=== PATIENT | female | born 1985 | race Caucasian/White ===

== ENCOUNTER → 2017-03-18 | Outpatient (CLI) | payer MEDICARE ==
[~2017-03-18] MED LIST: APTIOM400 MG PO; ATIVAN1 MG; BACTRIM DS TAB1 EAC1 PO; BACTRIM DS TAB1 EACH PO; CLIMARA0.0375 MG TRANSDERM; FOLIC ACID 1 MG1 MG GT; HYDROCODONE-AP1 EAC6 PO; LAMICTAL XR200 MG PO; LEXAPRO20 MG PO; LEXAPRO5 MG PO; LOMOTIL TABLET1 EACH PO; MULTIVITAMINS; NORCO 5-325 TA1 EAC1 PO; NORCO 5-325 TA1 EACH PO; PAXIL10 MG PO; PERCOCET 5-3251 EACH PO; PHENERGAN 25 MG25 M1 PO; PROGESTERONE100 MG PO; SILVADENE20 GM TP; TAMSULOSIN HCL0.4 M1 PER TUBE; TORADOL 10 MG T10 MG PO; TRAMADOL 50 MG50 MG PO; TRINESSA1 EACH PO; VALIUM5 MG; VIMPAT200 MG PO
[2017-03-18 11:27] LABS: HEMATOCRIT 41.2 % (37.0-47.0); HEMOGLOBIN 13.8 gm/dL (12.0-15.0); MCH 30.7 pg (26.0-34.0); MCHC 33.6 g/dL (28.0-37.0); MCV 91.4 fL (80.0-100.0); MPV 8.7 fl. (7.2-11.1); RBC 4.5 mil/uL (4.20-5.00); WBC 7.4 thou/uL (4.0-11.0)
[2017-03-18 11:39] LABS: ALBUMIN 3.9 g/dL (3.4-5.0); CALCIUM 9.1 mg/dL (8.5-10.1); CREATININE 0.7 mg/dL (0.6-1.3); POTASSIUM 3.8 mmol/L (3.5-5.1); TOTAL BILIRUBIN 0.2 mg/dL (<0.1-1.0); TOTAL PROTEIN 7.5 g/dL (6.4-8.2)
[2017-03-18 19:10] LABS: CORTISOL AM 11.8 ug/dL (6.2-19.4); PROLACTIN 5.9 ng/mL (4.8-23.3)
== END ==
LOC: M.LAB 10:53
PROVIDERS: Obstetrics & Gynecology
DX: G47.9 Sleep disorder, unspecified (principal); E55.9 Vitamin D deficiency, unspecified

== ENCOUNTER 2017-04-17 13:34 | Emergency (ER) | payer MEDICARE ==
[~2017-04-17] VITALS: Ht 160 cm; Wt 77.1 kg
[~2017-04-17 13:34] MED LIST changes: -LEXAPRO20 MG PO; -LOMOTIL TABLET1 EACH PO; -PHENERGAN 25 MG25 M1 PO; -PROGESTERONE100 MG PO; -TORADOL 10 MG T10 MG PO
[2017-04-17] MEDS ORDERED: LEXAPRO20 MG PO (13:54)
[2017-04-17 14:15] LABS: URINE BILIRUBIN NEGATIVE (Negative); URINE BLOOD NEGATIVE (Negative); URINE CLARITY CLEAR; URINE COLOR YELLOW; URINE GLUCOSE-RANDOM NEGATIVE (Negative); URINE KETONES NEGATIVE (Negative); URINE LEUKOCYTES-REFLEX NEGATIVE (Negative); URINE NITRITE-REFLEX NEGATIVE (Negative); URINE PROTEIN NEGATIVE (Negative); URINE UROBILINOGEN 0.2 E.U./dl (0.2-1.0)
[2017-04-17 14:21] LABS: MCH 31.2 pg (26.0-34.0); NUCLEATED RBCS 0 /100WBC
[2017-04-17 14:23] LABS: MCV 91.7 fL (80.0-100.0); MPV 8.3 fl. (7.2-11.1); PLATELET COUNT* 211 thou/uL (150-400); RBC 4.81 mil/uL (4.20-5.00); RDW-CV 13.5 % (10.5-14.5); WBC 10.6 thou/uL (4.0-11.0)
[2017-04-17 14:24] LABS: AMP/METHAMP Negative (Negative); BARBITURATES Negative (Negative); BENZODIAZEPINES Negative (Negative); COCAINE Negative (Negative); METHADONE Negative (Negative); OPIATES POSITIVE (Negative); PCP Negative (Negative); THC Negative (Negative)
[2017-04-17 14:28] LABS: ANION GAP 7 mmol/L (7-16); BUN 8 mg/dL (7-18); CALCIUM 9.2 mg/dL (8.5-10.1); CHLORIDE 101 mmol/L (98-107); CO2 29 mmol/L (21-32); CREATININE 0.7 mg/dL (0.6-1.3); GLUCOSE 100 mg/dL (70-99); POTASSIUM 3.9 mmol/L (3.5-5.1); SODIUM 137 mmol/L (136-145)
[2017-04-17 14:35] LABS: ALBUMIN 4.2 g/dL (3.4-5.0); ALKALINE PHOSPHATASE 98 U/L (46-116); MAGNESIUM 1.9 mg/dL (1.8-2.4); SGOT 27 U/L (15-37); SGPT 47 U/L (30-65); TOTAL BILIRUBIN 0.2 mg/dL (<0.1-1.0); TROPONIN-I LEVEL <0.06 ng/mL (<0.06)
[2017-04-17 15:04] LABS: ABSOLUTE EOSINOPHILS 0.1 thou/uL (0.0-0.7); ABSOLUTE LYMPHOCYTES 0.3 thou/uL (0.8-5.3); ABSOLUTE MONOCYTES 0.1 thou/uL (0.0-1.2); ABSOLUTE NEUTROPHILS 10.1 thou/uL (1.6-8.1); PLATELET ESTIMATE ADEQUATE
[2017-04-17] MEDS ORDERED: BACTRIM DS TAB1 EACH PO (15:25)
[2017-04-17] MEDS ORDERED: TORADOL 10 MG T10 MG PO (15:26)
[2017-04-17 16:25] VITALS: BP 107/54
--- NOTE | 2017-04-17 17:47 | EKG ---
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 04/17/17 1747 1440 1440 Orlando Covington MD, FACC /EPI
== END 2017-04-17 16:26 | disposition home or self-care (01) ==
LOC: M.ERS 13:34
PROVIDERS: Physician Assistant
DX: R51 Headache (principal); F44.5 Conversion disorder with seizures or convulsions; R31.9 Hematuria, unspecified; F41.9 Anxiety disorder, unspecified; Z90.710 Acquired absence of both cervix and uterus; Z88.5 Allergy status to narcotic agent; Z88.8 Allergy status to other drugs, medicaments and biological substances

== ENCOUNTER 2018-01-06 18:05 | Emergency (ER) | payer MEDICARE ==
[~2018-01-06] VITALS: Ht 162.6 cm; Wt 91.2 kg
[~2018-01-06 18:05] MED LIST changes: +LEXAPRO20 MG PO; +TORADOL 10 MG T10 MG PO
[2018-01-06] MEDS ORDERED: PROGESTERONE100 MG PO (18:18)
[2018-01-06 18:46] LABS: ABSOLUTE EOSINOPHILS 0.1 thou/uL (0.0-0.7); ABSOLUTE LYMPHOCYTES 1.5 thou/uL (0.8-5.3); ABSOLUTE MONOCYTES 0.6 thou/uL (0.0-1.2); ABSOLUTE NEUTROPHILS 6.2 thou/uL (1.6-8.1); BASOPHILS 0.4 %; HEMATOCRIT 40.4 % (37.0-47.0); HEMOGLOBIN 13.7 gm/dL (12.0-15.0); LYMPHOCYTES 18.2 %; MCH 30.7 pg (26.0-34.0); MCHC 33.8 g/dL (28.0-37.0); MCV 90.9 fL (80.0-100.0); MONOCYTES 6.6 %; MPV 8.7 fl. (7.2-11.1); NUCLEATED RBCS 0 /100WBC; PLATELET COUNT* 225 thou/uL (150-400); POLYS 73.8 %; RBC 4.45 mil/uL (4.20-5.00); RDW-CV 14.6 % (10.5-14.5); WBC 8.4 thou/uL (4.0-11.0)
[2018-01-06 18:53] LABS: ANION GAP 7 mmol/L (7-16); BUN 7 mg/dL (7-18); CALCIUM 9.6 mg/dL (8.5-10.1); CHLORIDE 103 mmol/L (98-107); CO2 28 mmol/L (21-32); CREATININE 0.8 mg/dL (0.6-1.3); GLUCOSE 99 mg/dL (70-99); POTASSIUM 3.5 mmol/L (3.5-5.1); SODIUM 138 mmol/L (136-145)
[2018-01-06 18:58] LABS: ALBUMIN 3.7 g/dL (3.4-5.0); ALKALINE PHOSPHATASE 120 U/L (46-116); LIPASE 204 U/L (73-393); SGOT 23 U/L (15-37); SGPT 42 U/L (30-65); TOTAL BILIRUBIN 0.2 mg/dL (<0.1-1.0); TOTAL PROTEIN 7.7 g/dL (6.4-8.2); TROPONIN-I LEVEL <0.06 ng/mL (<0.06)
[2018-01-06 19:14] LABS: URINE BILIRUBIN NEGATIVE (Negative); URINE BLOOD NEGATIVE (Negative); URINE CLARITY CLEAR; URINE COLOR YELLOW; URINE GLUCOSE-RANDOM NEGATIVE (Negative); URINE KETONES NEGATIVE (Negative); URINE LEUKOCYTES-REFLEX NEGATIVE (Negative); URINE NITRITE-REFLEX NEGATIVE (Negative); URINE PROTEIN NEGATIVE (Negative); URINE SPECIFIC GRAVITY 1.015 (1.005-1.030); URINE UROBILINOGEN 0.2 E.U./dl (0.2-1.0)
[2018-01-06 19:26] LABS: INFLUENZA A ANTIGEN None Detected (None Detect); INFLUENZA B ANTIGEN None Detected (None Detect)
[2018-01-06] MEDS ORDERED: LOMOTIL TABLET1 EACH PO (21:01)
[2018-01-06] MEDS ORDERED: PHENERGAN 25 MG25 M1 PO (21:01)
[2018-01-06 21:14] VITALS: BP 100/55
--- NOTE | 2018-01-07 18:13 | EKG ---
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
== END 2018-01-06 21:15 | disposition home or self-care (01) ==
LOC: M.ERS 18:05
PROVIDERS: Nurse Practitioner Family
DX: K52.9 Noninfective gastroenteritis and colitis, unspecified (principal); E86.0 Dehydration; F41.9 Anxiety disorder, unspecified; G43.909 Migraine, unspecified, not intractable, without status migrainosus; Z90.710 Acquired absence of both cervix and uterus; Z88.6 Allergy status to analgesic agent; Z88.8 Allergy status to other drugs, medicaments and biological substances

== ENCOUNTER 2019-06-21 18:33 | Emergency (ER) | payer OTHER ==
[~2019-06-21] VITALS: Ht 160 cm; Wt 81.2 kg
[~2019-06-21 18:33] MED LIST changes: +LOMOTIL TABLET1 EACH PO; +PHENERGAN 25 MG25 M1 PO; +PROGESTERONE100 MG PO
[2019-06-21] MEDS ORDERED: TYLENOL WITH CO1 TA1 PO (18:57)
[2019-06-21] MEDS ORDERED: AMOXICILLIN 50500 M1 PO (18:57)
[2019-06-21] MEDS ORDERED: LIDOCAINE VISC100 ML SWISH&SPIT (18:57)
[2019-06-21 19:03] VITALS: BP 129/74
== END 2019-06-21 19:05 | disposition home or self-care (01) ==
LOC: M.ERS 18:33
DX: K04.7 Periapical abscess without sinus (principal); G43.909 Migraine, unspecified, not intractable, without status migrainosus; F41.9 Anxiety disorder, unspecified; Z90.710 Acquired absence of both cervix and uterus; Z88.6 Allergy status to analgesic agent; Z88.8 Allergy status to other drugs, medicaments and biological substances

== ENCOUNTER 2019-08-13 10:46 | Emergency (ER) | payer OTHER ==
[~2019-08-13] VITALS: Ht 162.6 cm; Wt 88.1 kg
[~2019-08-13 10:46] MED LIST changes: +AMOXICILLIN 50500 M1 PO; +LIDOCAINE VISC100 ML SWISH&SPIT; +TYLENOL WITH CO1 TA1 PO
[2019-08-13 12:00] LABS: ABSOLUTE EOSINOPHILS 0.1 thou/uL (0.0-0.7); ABSOLUTE LYMPHOCYTES 1.2 thou/uL (0.8-5.3); ABSOLUTE MONOCYTES 0.2 thou/uL (0.0-1.2); ABSOLUTE NEUTROPHILS 2.6 thou/uL (1.6-8.1); BASOPHILS 0.4 %; EOSINOPHILS 1.7 %; HEMATOCRIT 38.2 % (37.0-47.0); HEMOGLOBIN 13.2 gm/dL (12.0-15.0); LYMPHOCYTES 29.3 %; MCH 30.1 pg (26.0-34.0); MCHC 34.5 g/dL (28.0-37.0); MCV 87.4 fL (80.0-100.0); MONOCYTES 5.8 %; MPV 8.5 fl. (7.2-11.1); NUCLEATED RBCS 0 /100WBC; PLATELET COUNT* 182 thou/uL (150-400); POLYS 62.8 %; RBC 4.37 mil/uL (4.20-5.00); RDW-CV 14.4 % (10.5-14.5); WBC 4.1 thou/uL (4.0-11.0)
[2019-08-13 12:09] LABS: CALCIUM 8.7 mg/dL (8.5-10.1); CREATININE 0.9 mg/dL (0.6-1.3); POTASSIUM 3.4 mmol/L (3.5-5.1)
[2019-08-13 12:13] LABS: ALBUMIN 3.6 g/dL (3.4-5.0); TOTAL BILIRUBIN 0.3 mg/dL (<0.1-1.0); TOTAL PROTEIN 7.2 g/dL (6.4-8.2)
[2019-08-13 13:01] LABS: URINE BILIRUBIN NEGATIVE (Negative); URINE BLOOD NEGATIVE (Negative); URINE CLARITY CLEAR; URINE COLOR YELLOW; URINE GLUCOSE-RANDOM NEGATIVE (Negative); URINE KETONES NEGATIVE (Negative); URINE LEUKOCYTES-REFLEX NEGATIVE (Negative); URINE NITRITE-REFLEX NEGATIVE (Negative); URINE PROTEIN NEGATIVE (Negative); URINE SPECIFIC GRAVITY 1.015 (1.005-1.030); URINE UROBILINOGEN 0.2 E.U./dl (0.2-1.0)
[2019-08-13 13:08] LABS: AMP/METHAMP Negative (Negative); BARBITURATES Negative (Negative); BENZODIAZEPINES POSITIVE (Negative); COCAINE Negative (Negative); METHADONE Negative (Negative); OPIATES Negative (Negative); PCP Negative (Negative); THC Negative (Negative)
[2019-08-13] MEDS ORDERED: ZOFRAN ODT4 MG PO (14:07)
[2019-08-13 14:40] VITALS: BP 115/69
== END 2019-08-13 14:40 | disposition home or self-care (01) ==
LOC: M.ERS 10:46
PROVIDERS: Personal Emergency Response Attendant
DX: R11.2 Nausea with vomiting, unspecified (principal); R19.7 Diarrhea, unspecified; G43.909 Migraine, unspecified, not intractable, without status migrainosus; F41.9 Anxiety disorder, unspecified; Z90.710 Acquired absence of both cervix and uterus; Z88.6 Allergy status to analgesic agent; Z88.8 Allergy status to other drugs, medicaments and biological substances

== ENCOUNTER 2020-01-03 17:08 | Emergency (ER) | payer OTHER ==
[~2020-01-03] VITALS: Ht 160 cm; Wt 68.0 kg
[~2020-01-03 17:08] MED LIST changes: +ZOFRAN ODT4 MG PO
[2020-01-03] MEDS ORDERED: IBUPROFEN 800800 M1 PO (17:30)
[2020-01-03] MEDS ORDERED: NORCO 5-325 TA1 EAC2 PO (17:30)
[2020-01-03] MEDS ORDERED: PENICILLIN VK500 MG PO (17:30)
[2020-01-03 17:39] VITALS: BP 123/75
== END 2020-01-03 17:41 | disposition home or self-care (01) ==
LOC: M.ERS 17:08
DX: K02.9 Dental caries, unspecified (principal); G43.909 Migraine, unspecified, not intractable, without status migrainosus; Z88.5 Allergy status to narcotic agent; Z88.8 Allergy status to other drugs, medicaments and biological substances; Z88.6 Allergy status to analgesic agent; Z90.710 Acquired absence of both cervix and uterus

== ENCOUNTER → 2020-08-02 | Outpatient (CLI) | payer OTHER ==
[~2020-08-02] MED LIST changes: +IBUPROFEN 800800 M1 PO; +NORCO 5-325 TA1 EAC2 PO; +PENICILLIN VK500 MG PO
[2020-08-02 15:13] LABS: HEMATOCRIT 39.7 % (37.0-47.0); HEMOGLOBIN 13.5 gm/dL (12.0-15.0); MCH 29.9 pg (26.0-34.0); MCV 87.9 fL (80.0-100.0); MPV 7.7 fl. (7.2-11.1); RBC 4.52 mil/uL (4.20-5.00); RDW-CV 13.5 % (10.5-14.5)
[2020-08-02 15:38] LABS: ALBUMIN 4.1 g/dL (3.4-5.0); CALCIUM 9.8 mg/dL (8.5-10.1); CREATININE 0.8 mg/dL (0.6-1.3); POTASSIUM 4.3 mmol/L (3.5-5.1); TOTAL BILIRUBIN 0.3 mg/dL (<0.1-1.0); TOTAL PROTEIN 7.3 g/dL (6.4-8.2)
== END ==
LOC: M.ULTRA 10:30 → M.LAB 11:00 → M.ULTRA 14:00
PROVIDERS: ATTEND Nurse Practitioner Family
DX: K80.20 Calculus of gallbladder without cholecystitis without obstruction (principal); K90.49 Malabsorption due to intolerance, not elsewhere classified; R10.11 Right upper quadrant pain